=== PATIENT | male | born 1970 | race Caucasian/White ===

== ENCOUNTER → 2016-12-09 | Outpatient (CLI) | payer OTHER ==
--- NOTE | 2016-12-09 14:16 | NUR ---
STRESS ECHO COMPLETED
== END | disposition home or self-care (01) ==
LOC: CA 11:00
DX: R07.9 Chest pain, unspecified (principal); R06.02 Shortness of breath; I10 Essential (primary) hypertension

== ENCOUNTER → 2016-12-17 | Day surgery (SDC) | payer OTHER ==
[~2016-12-17] VITALS: Ht 182.9 cm; Wt 90.7 kg
[2016-12-17 07:22] VITALS: BP 143/89
[2016-12-17 11:57] VITALS: BP 134/95
== END | disposition home or self-care (01) ==
LOC: DS 07:07 → OR 08:00 → DS 08:00
PROVIDERS: Anesthesiology Pain Medicine
PROC: BR141ZZ Fluoroscopy of Cervical Facet Joint(s) using Low Osmolar Contrast (ICD-10-PCS; 2016-12-17)
PROC: 3E0T3BZ Introduction of Anesthetic Agent into Peripheral Nerves and Plexi, Percutaneous Approach (ICD-10-PCS; principal; 2016-12-17 08:00)
DX: M47.892 Other spondylosis, cervical region (principal); I10 Essential (primary) hypertension; Z68.27 Body mass index [BMI] 27.0-27.9, adult
CPT/HCPCS: 77003; J2001; J2250; J3010; J3490; J7040; Q0092

== ENCOUNTER → 2016-12-23 | Outpatient (CLI) | payer OTHER | END | disposition home or self-care (01) | LOC: MI 09:47 | PROC: BR30ZZZ Magnetic Resonance Imaging (MRI) of Cervical Spine (ICD-10-PCS; principal; 2016-12-23) | DX: M54.2 Cervicalgia (principal) ==

== ENCOUNTER 2017-04-15 07:29 | Day surgery (SDC) | payer OTHER ==
--- NOTE | 2017-04-13 13:53 | NUR ---
SPOKE WITH ANESTHESIA REGARDING NEEDING LABS FOR THIS PATIENT. NO TESTS REQUIRED PER DR. Marlen WESTBROOK. DR. FRANCIS'S CALLED AND INFORMED.
[~2017-04-15] VITALS: Ht 182.9 cm; Wt 90.3 kg
[2017-04-15 07:52] VITALS: BP 134/70
[2017-04-15 11:09] VITALS: BP 134/90
== END 2017-04-15 10:35 | disposition home or self-care (01) ==
LOC: DS 07:29
PROVIDERS: Anesthesiology Pain Medicine
PROC: 3E0U3BZ Introduction of Anesthetic Agent into Joints, Percutaneous Approach (ICD-10-PCS; 2017-04-15)
PROC: BR141ZZ Fluoroscopy of Cervical Facet Joint(s) using Low Osmolar Contrast (ICD-10-PCS; 2017-04-15)
PROC: 3E0U33Z Introduction of Anti-inflammatory into Joints, Percutaneous Approach (ICD-10-PCS; principal; 2017-04-15 08:30)
DX: M47.892 Other spondylosis, cervical region (principal); G89.4 Chronic pain syndrome; I10 Essential (primary) hypertension; Z68.27 Body mass index [BMI] 27.0-27.9, adult
CPT/HCPCS: 77003; J1100; J2001; J3490; J7040; Q0092; Q9967

== ENCOUNTER → 2017-11-18 | Day surgery (SDC) | payer OTHER ==
[~2017-11-18] VITALS: Ht 182.9 cm; Wt 90.3 kg
[2017-11-18 07:37] VITALS: BP 133/80
[2017-11-18 10:19] VITALS: BP 127/94
== END | disposition home or self-care (01) ==
LOC: DS 07:25 → OR 08:30 → DS 09:30 → OR 09:30
PROVIDERS: Anesthesiology Pain Medicine
PROC: 3E0U3BZ Introduction of Anesthetic Agent into Joints, Percutaneous Approach (ICD-10-PCS; 2017-11-18)
PROC: BR141ZZ Fluoroscopy of Cervical Facet Joint(s) using Low Osmolar Contrast (ICD-10-PCS; 2017-11-18)
PROC: 3E0U33Z Introduction of Anti-inflammatory into Joints, Percutaneous Approach (ICD-10-PCS; principal; 2017-11-18 09:30)
DX: M47.892 Other spondylosis, cervical region (principal); G89.4 Chronic pain syndrome; I10 Essential (primary) hypertension
CPT/HCPCS: 77003; J1100; J2001; J2250; J3010; J3490

== ENCOUNTER → 2018-02-12 | Outpatient (CLI) | payer OTHER ==
[2018-02-12 08:11] LABS: BASOPHIL % 0.9 % (0-2); PLATELET COUNT 386 x10^3mcL (130-400); RED CELL DISTRIBUTION WIDTH 13.7 % (11.5-14.5)
[2018-02-12 08:47] LABS: ALBUMIN 4.1 g/dL (3.4-5.0); ALKALINE PHOSPHATASE 54 U/L (46-116); ALT/SGPT 33 U/L (16-63); AST/SGOT 15 U/L (15-37); BILIRUBIN TOTAL 0.37 mg/dL (0.20-1.00); CALCIUM 8.8 mg/dL (8.5-10.1); CARBON DIOXIDE 25.2 mmol/L (21-32); CHLORIDE SERUM 105 mmol/L (98-107); CHOLESTEROL 187 mg/dL (<200); CHOLESTEROL/HDL RATIO 4.8; GFR1 > 60 mL/min; GLUCOSE SERUM 96 mg/dL (74-106); HDL CHOLESTEROL 39 mg/dL (40-60); SODIUM SERUM 141 mmol/L (136-145); TOTAL PROTEIN, SERUM 7.4 g/dL (6.4-8.2); TRIGLYCERIDES 120 mg/dL (<150)
== END | disposition home or self-care (01) ==
LOC: RD 07:47 → LB 07:47
PROVIDERS: Internal Medicine
DX: Z00.00 Encounter for general adult medical examination without abnormal findings (principal)
CPT/HCPCS: 84153

== ENCOUNTER → 2018-02-15 | Outpatient (CLI) | payer OTHER | END | disposition home or self-care (01) | LOC: RD 08:24 | DX: J32.9 Chronic sinusitis, unspecified (principal) ==

== ENCOUNTER 2018-06-23 06:58 | Day surgery (SDC) | payer OTHER ==
[~2018-06-23] VITALS: Ht 182.9 cm; Wt 90.3 kg
[2018-06-23 07:36] VITALS: BP 125/87
[2018-06-23 11:26] VITALS: BP 130/76
== END 2018-06-23 10:00 | disposition home or self-care (01) ==
LOC: DS 06:58 → OR 08:30 → DS 10:00
PROVIDERS: Anesthesiology Pain Medicine
PROC: 3E0U3BZ Introduction of Anesthetic Agent into Joints, Percutaneous Approach (ICD-10-PCS; 2018-06-23)
PROC: 3E0U33Z Introduction of Anti-inflammatory into Joints, Percutaneous Approach (ICD-10-PCS; principal; 2018-06-23 08:30)
DX: M47.892 Other spondylosis, cervical region (principal); G89.4 Chronic pain syndrome; I10 Essential (primary) hypertension; Z68.26 Body mass index [BMI] 26.0-26.9, adult
CPT/HCPCS: 77003; J2001; J2250; J2704; J3010; J3490; J7120

== ENCOUNTER → 2018-07-06 | Outpatient (CLI) | payer OTHER ==
[2018-07-06 16:37] LABS: BASOPHIL % 1.2 % (0-2); RED CELL DISTRIBUTION WIDTH 13.4 % (11.5-14.5)
[2018-07-06 16:38] LABS: PLATELET COUNT 404 x10^3mcL (130-400)
[2018-07-06 16:50] LABS: ALBUMIN 4.2 g/dL (3.4-5.0); ALKALINE PHOSPHATASE 54 U/L (46-116); ALT/SGPT 26 U/L (16-63); AST/SGOT 13 U/L (15-37); BILIRUBIN DIRECT 0.11 mg/dL (0.0-0.2); BILIRUBIN TOTAL 0.45 mg/dL (0.20-1.00); CALCIUM 8.8 mg/dL (8.5-10.1); CARBON DIOXIDE 27.1 mmol/L (21-32); CHLORIDE SERUM 105 mmol/L (98-107); CHOLESTEROL 171 mg/dL (<200); CHOLESTEROL/HDL RATIO 4.3; FREE T4 1.02 ng/dL (0.76-1.46); GFR1 > 60 mL/min; GLUCOSE SERUM 81 mg/dL (74-106); HDL CHOLESTEROL 40 mg/dL (40-60); POTASSIUM SERUM 3.7 mmol/L (3.5-5.1); SODIUM SERUM 141 mmol/L (136-145); TOTAL PROTEIN, SERUM 7.6 g/dL (6.4-8.2); TRIGLYCERIDES 167 mg/dL (<150)
== END | disposition home or self-care (01) ==
LOC: LB 16:10
PROVIDERS: Internal Medicine
DX: Z00.00 Encounter for general adult medical examination without abnormal findings (principal)
CPT/HCPCS: 84153; 84439

== ENCOUNTER 2019-03-23 07:18 | Day surgery (SDC) | payer OTHER ==
[~2019-03-23] VITALS: Ht 182.9 cm; Wt 90.3 kg
[2019-03-23 07:36] VITALS: BP 137/91
[2019-03-23 10:28] VITALS: BP 128/96
== END 2019-03-23 09:50 | disposition home or self-care (01) ==
LOC: DS 07:18 → OR 08:45 → DS 09:50
PROVIDERS: Anesthesiology Pain Medicine
PROC: 3E0U33Z Introduction of Anti-inflammatory into Joints, Percutaneous Approach (ICD-10-PCS; 2019-03-23)
PROC: BR14YZZ Fluoroscopy of Cervical Facet Joint(s) using Other Contrast (ICD-10-PCS; 2019-03-23)
PROC: 3E0U3BZ Introduction of Anesthetic Agent into Joints, Percutaneous Approach (ICD-10-PCS; principal; 2019-03-23 07:30)
DX: M47.812 Spondylosis without myelopathy or radiculopathy, cervical region (principal); M54.81 Occipital neuralgia; M62.838 Other muscle spasm; G89.4 Chronic pain syndrome; I10 Essential (primary) hypertension; Z68.25 Body mass index [BMI] 25.0-25.9, adult
CPT/HCPCS: 77003; J1100; J2001; J2250; J3010; J3490; J7040; Q9967

== ENCOUNTER → 2019-06-28 | Outpatient (CLI) | payer OTHER | END | disposition home or self-care (01) | LOC: MI 08:13 | PROC: BR30ZZZ Magnetic Resonance Imaging (MRI) of Cervical Spine (ICD-10-PCS; principal; 2019-06-28) | DX: M54.2 Cervicalgia (principal) ==

== ENCOUNTER 2019-07-27 06:45 | Day surgery (SDC) | payer OTHER ==
[~2019-07-27] VITALS: Ht 182.9 cm; Wt 90.3 kg
[2019-07-27 07:13] VITALS: BP 140/91
[2019-07-27 10:56] VITALS: BP 145/85
== END 2019-07-27 10:25 | disposition home or self-care (01) ==
LOC: DS 06:45 → OR 08:30 → DS 08:30 → OR 10:00 → DS 10:25
DX: G89.4 Chronic pain syndrome (principal); M47.892 Other spondylosis, cervical region
CPT/HCPCS: 77003; J1100; J2001; J2250; J3010; J3490

== ENCOUNTER → 2020-02-28 | Outpatient (CLI) | payer OTHER | END | disposition home or self-care (01) | LOC: RD 14:01 | DX: U07.1 COVID-19 (principal); R05 Cough ==

== ENCOUNTER → 2020-11-02 | Outpatient (CLI) | payer OTHER ==
[2020-11-05 09:15] LABS: BASOPHIL % 1.2 % (0.2-1.5); PLATELET COUNT 381 x10^3mcL (152-348); RED CELL DISTRIBUTION WIDTH 13.8 % (12.1-16.2)
[2020-11-05 09:58] LABS: ALBUMIN 4.1 g/dL (3.4-5.0); ALKALINE PHOSPHATASE 53 U/L (46-116); ALT/SGPT 34 U/L (16-63); AST/SGOT 14 U/L (15-37); BILIRUBIN DIRECT 0.08 mg/dL (0.0-0.2); BILIRUBIN TOTAL 0.36 mg/dL (0.20-1.00); CARBON DIOXIDE 24.6 mmol/L (21-32); CHLORIDE SERUM 103 mmol/L (98-107); CREATININE SERUM 1.2 mg/dL (0.7-1.3); GFR1 > 60 mL/min; GLUCOSE SERUM 92 mg/dL (74-106); HDL CHOLESTEROL 44 mg/dL (40-60); POTASSIUM SERUM 4.1 mmol/L (3.5-5.1); SODIUM SERUM 137 mmol/L (136-145); TOTAL PROTEIN, SERUM 7.3 g/dL (6.4-8.2); TRIGLYCERIDES 109 mg/dL (<150)
[2020-11-05 09:59] LABS: CHOLESTEROL 205 mg/dL (<200); CHOLESTEROL/HDL RATIO 4.7
== END | disposition home or self-care (01) ==
LOC: LB 12:16 → RD 12:16
PROVIDERS: ATTEND Internal Medicine
DX: Z00.00 Encounter for general adult medical examination without abnormal findings (principal); M47.896 Other spondylosis, lumbar region
CPT/HCPCS: 84153